=== PATIENT | female | born 1975 | race Two or more races ===

== ENCOUNTER 2017-12-28 14:04 | Emergency (ER) | payer OTHER ==
[~2017-12-28] VITALS: Ht 167.6 cm; Wt 95.3 kg
[~2017-12-28 14:04] MED LIST: DOLOGESIC CAPLE1 TAB PO; FLEXERIL10 MG PO; NABUMETONE750 MG PO; VISTARIL50 MG PO
== END 2017-12-28 18:12 | disposition home or self-care (01) ==
LOC: ER 14:04
DX: M75.51 Bursitis of right shoulder (principal)